=== PATIENT | male | born 1965 | race Two or more races ===

== ENCOUNTER 2019-05-16 19:08 | Emergency (ER) | payer SELFPAY ==
[~2019-05-16] VITALS: Ht 165.1 cm; Wt 68.0 kg
[2019-05-16 19:48] LABS: BASOPHILS % (AUTO) 0.4 % (0.0-2.0); HEMATOCRIT 27.9 % (36.7-47.1); HEMOGLOBIN 9.6 g/dL (12.5-16.3); LYMPHOCYTES # (AUTO) 0.7 K/uL (20.0-40.0); LYMPHOCYTES % (AUTO) 18.7 % (20.5-51.5); MEAN CORPUSCULAR HEMOGLOBIN 30.1 uug (23.8-33.4); MEAN CORPUSCULAR HGB CONC 34 g/dL (32.5-36.3); MEAN CORPUSCULAR VOLUME 87.9 fL (73.0-96.2); MONOCYTES # (AUTO) 0.9 K/uL (2.0-10.0); NEUTROPHILS # (AUTO) 2.2 K/uL (1.8-8.9); NEUTROPHILS % (AUTO) 57.9 % (38.5-71.5); PLATELET COUNT (AUTO) 113 K/uL (152-348); RED BLOOD CELL COUNT(AUTO) 3.17 MIL/uL (4.06-5.63); WHITE BLOOD COUNT (AUTO) 3.8 K/uL (3.6-10.2)
[2019-05-16 19:55] LABS: ETHANOL < 3 MG/DL (0-0)
[2019-05-16 20:01] LABS: ALANINE AMINOTRANSFERASE 18 U/L (16-63); ALKALINE PHOSPHATASE 124 U/L (50-136); ASPARTATE AMINOTRANSFERASE 41 U/L (15-37); BILIRUBIN,DIRECT 0.3 mg/dL (0.0-0.2); BILIRUBIN,TOTAL 0.9 mg/dL (0.2-1.0); CARBON DIOXIDE 20 mmol/L (21-32); CHLORIDE 111 mmol/L (98-107); CREATININE 0.9 mg/dL (0.6-1.3); GLUCOSE 107 mg/dL (74-106); POTASSIUM 3.7 mmol/L (3.5-5.1); TOTAL PROTEIN, SERUM 6.8 g/dL (6.4-8.2); UREA NITROGEN, BLOOD 21 mg/dL (7-18)
[2019-05-16 20:03] LABS: ACETAMINOPHEN < 2.0 ug/mL (10-30)
--- NOTE | 2019-05-16 20:07 | NUR ---
[facility] [employer] tech arrived to dept for scan
[2019-05-16 20:10] LABS: *BILIRUBIN,URIN NEGATIVE (NEGATIVE); *BLOOD, URINE 2+ (NEGATIVE); *CLARITY,URINE CLEAR (CLEAR); *COLOR,URINE YELLOW (YELLOW); *KETONES,URINE NEGATIVE (NEGATIVE); *UROBILINOGEN,URINE 0.2 E.U./dl (NORMAL); LEUKOCYTE ESTERASE ,URINE NEGATIVE (NEGATIVE); NITRITE, URINE NEGATIVE (NEGATIVE); PH,URINE 5.5 (5.0-8.0); UGLUCOSE NEGATIVE (NEGATIVE)
[2019-05-16 20:21] LABS: MUCUS,URINE MODERATE /LPF (0-FEW); SQUAMOUS EPITHELIAL CELL,UR FEW /HPF (NONE SEEN); WBC,URINE 0-3 /HPF (0-3)
[2019-05-16 20:23] LABS: *AMPHETAMINE, URINE NEGATIVE (NEGATIVE); *BARBITURATE, URINE NEGATIVE (NEGATIVE); *CANNABINOID, URINE NEGATIVE (NEGATIVE); *COCCAINE, URINE NEGATIVE (NEGATIVE); *OPIATE, URINE NEGATIVE (NEGATIVE); *PHENCYCLIDINE SCREEN,URINE NEGATIVE (NEGATIVE)
[2019-05-16 20:28] LABS: BAND % (MANUAL) 6 % (0-10); LYMPHOCYTES % (MANUAL) 20 % (20-40); MONOCYTES % (MANUAL) 23 % (2-10); NEUTROPHILS % (MANUAL) 51 % (42-75)
--- NOTE | 2019-05-16 20:36 | NUR ---
PATIENT RETURNED FROM CT SCAN.
--- NOTE | 2019-05-17 07:05 | NUR ---
Patient discharged in stable conditon. Written and verbal after care instructions given. Patient verbalizes understanding of instructions. patient is homeless, resources provided, in waiting room for clinical social worker to come see him.
[2019-05-17 07:07] VITALS: BP 131/72
== END 2019-05-17 07:09 | disposition home or self-care (01) ==
LOC: ER 19:11
DX: R10.2 Pelvic and perineal pain (principal); F10.10 Alcohol abuse, uncomplicated; I10 Essential (primary) hypertension; Z59.0 Homelessness; Y90.0 Blood alcohol level of less than 20 mg/100 ml
CPT/HCPCS: 36415; 71045; 74176; 80048; 80076; 80307; 81000; 81001; 83880; 84484; 85007; 85025; 85730; 93005; 93970; 99284; G0480 ×2; G0481; 70030-TC; A4663